=== PATIENT | male | born 1980 | race Two or more races ===

== ENCOUNTER 2021-06-28 20:43 | Emergency (ER) | payer BC ==
[2021-06-28 20:56] VITALS: BP 140/88; PULSE 80; TEMP 97.9; BMI 24.4
[2021-06-28] MEDS ORDERED: predniSONE 20 MG TABLET (UD) PO ONE (21:31)
[2021-06-28] MEDS ORDERED: predniSONE 20 MG TABLET (UD) ONE (21:32)
== END 2021-06-28 21:37 | disposition home or self-care (01) ==
LOC: FER 20:43
DX: T78.40XA Allergy, unspecified, initial encounter (principal)
CPT/HCPCS: 99283-25